=== PATIENT | female | born 1985 | race Caucasian/White ===

== ENCOUNTER → 2025-04-17 | Outpatient (CLI) | payer OTHER ==
[2025-04-17 16:06] LABS: Bacterial Vaginosis PCR Negative (NEGATIVE); Candida Group, PCR NOT DETECTED (NOT DETECT); Candida glabrata-krusei, PCR NOT DETECTED (NOT DETECT)
[2025-04-19 13:12] LABS: HPVG SOURCE Cervical
== END ==
LOC: LAB SHORT 10:24 → LAB 10:24
PROVIDERS: Family Medicine
DX: Z01.419 Encounter for gynecological examination (general) (routine) without abnormal findings (principal)
CPT/HCPCS: 81515; 87624; 87625; G0123; G0145